=== PATIENT | male | born 1930 | race Caucasian/White ===

== ENCOUNTER 2017-10-09 11:07 | Emergency (ER) | payer MEDICARE ==
[2017-10-09] MEDS ORDERED: CEFTRIAXONE SODIUM 1 GM ONE (11:28)
[2017-10-09] MEDS ORDERED: SODIUM CHLORIDE 0.9% 1000ML 1,000 ML IV ONE ×2 (11:28→12:02)
[2017-10-09] MEDS ORDERED: ACETAMINOPHEN 325 MG TAB ONE (11:28)
[2017-10-09 12:14] LABS: BASOPHILS % (AUTO) 0.4 % (0.0-5.0); HEMATOCRIT 40.3 % (42-54); LYMPHOCYTES % (AUTO) 52.4 % (21.0-51.0); MEAN CORPUSCULAR HEMOGLOBIN 33.6 pg (27.0-33.0); MEAN CORPUSCULAR HGB CONC 34.2 g/dL (32.0-36.0); MEAN CORPUSCULAR VOLUME 98.3 fL (79-99); MONOCYTES % (AUTO) 8.1 % (3.0-13.0); NEUTROPHILS % (AUTO) 39.1 % (40.0-77.0); NUCLEATED RED BLOOD CELLS 0.1 % (0.0-0.19); PLATELET COUNT (AUTO) 138 K/uL (130-400); RED CELL DISTRIBUTION WIDTH 14.6 % (11.0-15.5); WHITE BLOOD COUNT (AUTO) 9.8 K/uL (4.8-10.8)
[2017-10-09 12:17] LABS: CARBON DIOXIDE 27 mmol/L (21-32); CHLORIDE 98 mmol/L (101-111); CREATININE 1.1 mg/dL (0.5-1.5); GLOMERULAR FILTR. RATE CALC 67 mL/min (>60); GLUCOSE,RANDOM 94 mg/dL (70-105); POTASSIUM 4.6 mmol/L (3.5-5.1); SODIUM SERUM 134 mmol/L (136-145); UREA NITROGEN, BLOOD 18 mg/dL (7-18)
[2017-10-09] MEDS ORDERED: KETOROLAC TROMETHAMINE 15MG/ML ONE (12:19)
[2017-10-09 12:22] LABS: INR 1.39 (0.85-1.15); PARTIAL THROMBOPLASTIN TIME 35.9 SEC (26.3-35.5); PROTHROMBIN TIME 14.5 SEC (9.6-11.6)
[2017-10-09 12:32] LABS: ALANINE AMINOTRANSFERASE 21 U/L (12-78); ALBUMIN 3.8 g/dL (3.5-5.0); ASPARTATE AMINOTRANSFERASE 24 U/L (10-37); CREATINE KINASE MB 0.9 ng/mL (0.5-3.6); CREATINE KINASE, TOTAL 83 U/L (21-232); MYOGLOBIN 89 ng/mL (10-92); TOTAL PROTEIN, SERUM 6.7 g/dL (6.0-8.3); TROPONIN I < 0.04 ng/mL (0.00-0.06)
[2017-10-09] MEDS ORDERED: OSELTAMIVIR PHOSPHATE 75 MG CAP ONE (14:12)
== END 2017-10-09 15:49 | disposition home or self-care (01) ==
LOC: EDH 11:07
DX: J11.1 Influenza due to unidentified influenza virus with other respiratory manifestations (principal); R79.1 Abnormal coagulation profile; R07.89 Other chest pain; Z98.890 Other specified postprocedural states
CPT/HCPCS: 36415; 71010; 80053; 82550; 82553; 83605; 83874; 84484; 85025; 85610; 85730; 87040 ×2; 87804 ×2; 93005; 96361; 96374; 96375; 99285; J0696; J1885; J7030 ×2